=== PATIENT | female | born 1990 | race Caucasian/White ===

== ENCOUNTER 2024-07-04 16:00 | Inpatient (IN) | payer MEDICAID, SELFPAY ==
[2024-07-04] VITALS (8 sets, daily range): BP systolic 146–174; BP diastolic 87–99; PULSE 110–127; BMI 36.2
--- NOTE | 2024-07-04 16:44 | PD.LDANTE ---
Documentation for date of: 07/04/24 OB Labor/Induct. HPI History of Present Illness History of present illness: H and P dictated on STAT line in [facility] [id number] Meds Home Medications and Allergies Home Medications ?Medication ?Instructions ?Recorded ?Confirmed ?Type vits no.130-ferrous fum 1 tab PO QDAY 07/04/24 07/04/24 History 27 mg iron-folic acid 800 mcg tablet ( Vitamin) Allergies Allergy/AdvReac Type Severity Reaction Status Date / Time No Known Allergies Allergy Verified 07/04/24 16:11 OB Exam Physical Exam Vital signs: Pulse BP 118 H 163/97 H 07/04/24 16:29 07/04/24 16:29
[2024-07-04] MEDS: BETAMET ACET/BETAMET NA PH (Celestone) 6 MG/ML VIAL 12 MG IM (17:02)
[2024-07-04 17:03] LABS: Collection Type, Urine Clean Catch
[2024-07-04 17:05] LABS: Basophils # (Auto) 0.1 Thou/mm3 (0.0-0.2); Basophils % (Auto) 1 % (0-2.5); Eosinophils # (Auto) 0.1 Thou/mm3 (0.0-0.5); Eosinophils % (Auto) 1 % (0-10); Hematocrit 34.8 % (36.0-46.0); Hemoglobin 12.5 g/dL (12.0-16.0); Immature Granulocytes % (Auto) 1 % (0-0); Immature Granulocytes Auto 0.11 Thou/mm3 (0.00-0.00); Lymphocytes # (Auto) 2.1 Thou/mm3 (1.0-4.8); Lymphocytes % (Auto) 19 % (10-50); Mean Corpuscular HGB Conc 35.9 g/dl (31.0-37.0); Mean Corpuscular Hemoglobin 30.5 pg (25.0-35.0); Mean Corpuscular Volume 85 fL (80-100); Monocytes # (Auto) 0.6 Thou/mm3 (0.0-0.8); Monocytes % (Auto) 6 % (0-12); Neutrophils # (Auto) 7.8 Thou/mm3 (1.8-7.7); Neutrophils % (Auto) 73 % (37-80); Nucleated Red Blood Cell % 0 /100 WBC (0); Platelet Count 279 Thou/mm3 (140-440); RDW Standard Deviation 41.7 fL (36.4-46.3); White Blood Count 10.7 Thou/mm3 (3.6-11.0)
[2024-07-04 17:06] LABS: Bilirubin,Urine Negative (Negative); Blood,Urine Negative (Negative); Clarity,Urine Clear (Clear/Hazy); Color,Urine Colorless (Lt Yel-Yel); Glucose, Urine Negative (Negative); Ketones,Urine Negative (Negative); Leukocyte Esterase,Urine Negative (Negative); Nitrite,Urine Negative (Negative); PH,Urine 6.5 (5.0-7.0); Protein,Urine Negative (Neg - Trace); RBC,Urine 1 /hpf (0-3); Specific Gravity,Urine 1.004 (1.001-1.035); Squamous Epithelial Cell,Urine 4 /hpf (0-5); Urobilinogen,Urine Negative mg/dL (0.0-1.0); WBC,Urine < 1 /hpf (0-5)
[2024-07-04 17:26] LABS: Fibrinogen 574 mg/dL (175-375); INR 0.9 (0.9-1.3); Partial Thromboplastin Time 24.5 Seconds (22.0-36.0); Prothrombin Time 9.9 Seconds (9.0-12.2)
[2024-07-04 17:30] LABS: Alanine Aminotransferase 16 U/L (10-49); Albumin/Globulin Ratio 1.5 (1.2-2.2); Alkaline Phosphatase 91 U/L (46-116); Anion Gap 11 (7-16); Aspartate Amino Transferase 18 U/L (0-34); BUN/Creatinine Ratio 10 Ratio (12-20); Bilirubin,Total 0.3 mg/dL (0.3-1.2); Blood Urea Nitrogen 5 mg/dL (9-23); Calcium 9.5 mg/dL (8.3-10.6); Calcium (Corrected) 9.5 mg/dL (8.5-10.1); Chloride 104 mMol/L (98-107); Creatinine (Component) 0.5 mg/dL (0.6-1.3); Estimated Creatinine Clearance 184.6 mL/min (>60); Globulin 2.7 gm/dL (2.3-3.5); Glucose 98 mg/dL (74-106); Osmolality,Calculated 271 (275-295); Potassium 3.4 mMol/L (3.4-5.1); Sodium 137 mMol/L (136-145); Total Protein 6.7 gm/dL (5.7-8.2); Uric Acid 4.5 mg/dL (3.1-7.8); eGFR > 60 See Note
[2024-07-04 17:31] LABS: Creatinine,Random Urine 23 mg/dL (30-125); Protein Total, Random Urine < 6 mg/dL (1-14)
[2024-07-04 17:46] LABS: Syphilis Nonreactive (Nonreactive)
--- NOTE | 2024-07-05 09:57 | ESHP_ITS ---
RE: PRADEEP CORNEJO : 1990 DATE OF ADMISSION: 07/04/2024 HISTORY OF PRESENT ILLNESS: This is a 33-year-old 1, para 0 with a due date of 08/07/2023 with intrauterine at 35 weeks and 2 days who presented to the office for care and was found to have 2+ urine protein on dipstick with a blood pressure of 176/100 mmHg. The patient's blood pressures at home have been higher lately with today had a diastolic of 90. She denies any headache, change in vision or right upper quadrant pain. She reports normal movement. She denies any leaking or bleeding. She reports occasional contractions. She has had serial ultrasounds with maternal medicine showing macrosomia with the most recent ultrasound on 06/13/2023 showing growth at the 96th percentile with a weight of 5 pounds 7 ounces on that date. The patient has suffered from white coat hypertension throughout her ; however, underlying chronic hypertension is suspected. Her blood pressures in the office have been in the severe range, but home blood pressures have been in the 130s/80s and recently with a diastolic of 90 at home. The patient has been undergoing twice-weekly NSTs in the office with reassuring category 1 tracings. In addition to the anxiety the patient experiences in the clinical setting she also has elevated heart rate, which is normal at home, but in the office can be upwards of 100 to 120. ALLERGIES: NO KNOWN DRUG ALLERGIES. MEDICATIONS: 1. multivitamin 1 p.o. daily. 2. Aspirin 81 mg 1 p.o. daily. 3. Xolair 75 mg 1 subcutaneous injection biweekly as needed for chronic urticaria. PAST MEDICAL HISTORY: Anxiety disorder, white coat hypertension, menstrual migraine, chronic urticaria. SOCIAL HISTORY: She denies any alcohol drug use or smoking. 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 She is . FAMILY HISTORY: Denies. PAST SURGICAL HISTORY: Denies. REVIEW OF SYSTEMS: She denies any chest pain, palpitations, cough, fever, shortness of breath, or lower extremity pain. She denies any headache, change in vision or right upper quadrant pain. PHYSICAL EXAMINATION: Vital Signs: Blood pressure is 174/95 and 163/97. Heart rate was 127. Respirations 18. Temperature is 98.6. HEENT: Oropharynx and sclerae are clear. Lungs: Clear to auscultation bilaterally. Heart: Regular rate and rhythm. Abdomen: Gravid consistent with estimated weight of 6 pounds. Pelvic: Pelvic exam is deferred. Extremities: Nontender. Skin: No gross rashes or lesions. Neurologic: No focal deficits. ASSESSMENT AND PLAN: Intrauterine at 35 weeks and 2 days, proteinuria, white coat hypertension, rule out preeclampsia. I discussed with the patient the recommendations for maternal unit evaluation to rule out preeclampsia, the patient agrees. DT: 16:43:34 TT: 17:28:00 Ref: [id number] - TID: [id number] MTDD
== END 2024-07-04 18:35 | disposition home or self-care (01) | DRG 566 ==
PROVIDERS: Admitting Provider Specialist; PCP Family Medicine; Visit Provider Specialist
DX: O10.913 Unspecified pre-existing hypertension complicating pregnancy, third trimester (principal); O36.60X0 Maternal care for excessive fetal growth, unspecified trimester, not applicable or unspecified; O99.343 Other mental disorders complicating pregnancy, third trimester; O99.713 Diseases of the skin and subcutaneous tissue complicating pregnancy, third trimester; Z3A.35 35 weeks gestation of pregnancy; F41.9 Anxiety disorder, unspecified; L50.8 Other urticaria; Z79.82 Long term (current) use of aspirin
CPT/HCPCS: 36415; 80053; 81001; 82570; 84156; 84550; 85025; 85384; 85610; 85730; 86780; 86850; 86870; 86900; 86901; J0702

== ENCOUNTER 2024-07-05 17:09 | Observation (INO) | payer MEDICAID, SELFPAY ==
[2024-07-05 17:15] VITALS: PULSE 134; RESP 19; RESP 97; TEMP 37.1
[2024-07-05 17:25] VITALS: BP 135/93; PULSE 136
[2024-07-05 17:26] VITALS: BP 135/93; PULSE 130; RESP 17; TEMP 37.1; O2SAT 97; BMI 36.1
[2024-07-05] MEDS: BETAMET ACET/BETAMET NA PH (Celestone) 6 MG/ML VIAL 12 MG IM (17:49)
== END 2024-07-05 18:15 | disposition home or self-care (01) ==
PROVIDERS: Admitting Provider Specialist; PCP Family Medicine; Visit Provider Specialist
DX: Z34.03 Encounter for supervision of normal first pregnancy, third trimester (principal); Z3A.35 35 weeks gestation of pregnancy
CPT/HCPCS: 59025; 59899; 96372; J0702

== ENCOUNTER 2024-07-06 11:54 | Inpatient (IN) | payer MEDICAID, SELFPAY ==
[2024-07-06] VITALS (36 sets, daily range): BP systolic 128–190; BP diastolic 77–108; PULSE 63–133; RESP 10–99; TEMP 36.6–37; O2SAT 93–98; BMI 35.5; BMI 35.4
[2024-07-06 09:54] LABS: Basophils % (Auto) 0 % (0-2.5); Eosinophils % (Auto) 0 % (0-10); Hematocrit 35.1 % (36.0-46.0); Hemoglobin 12.3 g/dL (12.0-16.0); Immature Granulocytes % (Auto) 3 % (0-0); Immature Granulocytes Auto 0.37 Thou/mm3 (0.00-0.00); Lymphocytes # (Auto) 2.2 Thou/mm3 (1.0-4.8); Lymphocytes % (Auto) 15 % (10-50); Mean Corpuscular Hemoglobin 30.3 pg (25.0-35.0); Mean Corpuscular Volume 87 fL (80-100); Monocytes # (Auto) 0.9 Thou/mm3 (0.0-0.8); Monocytes % (Auto) 6 % (0-12); Neutrophils # (Auto) 10.7 Thou/mm3 (1.8-7.7); Neutrophils % (Auto) 76 % (37-80); Nucleated Red Blood Cell # 0.02 Thou/mm3 (0.00-0.00); Nucleated Red Blood Cell % 0 /100 WBC (0); Platelet Count 302 Thou/mm3 (140-440); RDW Standard Deviation 43.4 fL (36.4-46.3); Red Blood Count 4.06 Miln/mm3 (4.00-5.20); White Blood Count 14.2 Thou/mm3 (3.6-11.0)
[2024-07-06 10:14] LABS: Alanine Aminotransferase 16 U/L (10-49); Albumin, Serum 4.1 gm/dL (3.5-5.0); Albumin/Globulin Ratio 1.5 (1.2-2.2); Alkaline Phosphatase 89 U/L (46-116); Anion Gap 12 (7-16); Aspartate Amino Transferase 16 U/L (0-34); BUN/Creatinine Ratio 16 Ratio (12-20); Bilirubin,Total 0.4 mg/dL (0.3-1.2); Blood Urea Nitrogen 8 mg/dL (9-23); Calcium 9.6 mg/dL (8.3-10.6); Calcium (Corrected) 9.6 mg/dL (8.5-10.1); Carbon Dioxide 23.4 mMol/L (20.0-31.0); Chloride 103 mMol/L (98-107); Creatinine (Component) 0.5 mg/dL (0.6-1.3); Estimated Creatinine Clearance 182.6 mL/min (>60); Globulin 2.7 gm/dL (2.3-3.5); Glucose 106 mg/dL (74-106); LDH (Lactate Dehydrogenase) 163 U/L (120-246); Osmolality,Calculated 273 (275-295); Potassium 3.5 mMol/L (3.4-5.1); Sodium 138 mMol/L (136-145); Total Protein 6.8 gm/dL (5.7-8.2); Uric Acid 5.1 mg/dL (3.1-7.8); eGFR > 60 See Note
[2024-07-06 10:36] LABS: Protein Total, Urine Volume 3500 mL/24hr (600-1800)
[2024-07-06 11:03] LABS: Protein Total, 24 hr Urine 315 mg/24hr (<149); Protein Total, Urine 9 mg/dL (1-14)
[2024-07-06 11:13] LABS: Fibrinogen 490 mg/dL (175-375); INR 0.9 (0.9-1.3); Partial Thromboplastin Time 23.4 Seconds (22.0-36.0); Prothrombin Time 10.2 Seconds (9.0-12.2)
--- NOTE | 2024-07-06 11:52 | PD.LDHP ---
Documentation for date of: 07/06/24 OB Labor/Induct. HPI History of Present Illness History of present illness: H and P dictated on STAT line in [facility] [id number] History of Present Adequate Care: Yes Meds Home Medications and Allergies Home Medications ?Medication ?Instructions ?Recorded ?Confirmed ?Type vits no.130-ferrous fum 1 tab PO QDAY 07/04/24 07/05/24 History 27 mg iron-folic acid 800 mcg tablet ( Vitamin) aspirin 81 mg tablet,delayed 81 mg PO QDAY 07/05/24 07/05/24 History release (Adult Low Dose Aspirin) Allergies Allergy/AdvReac Type Severity Reaction Status Date / Time No Known Allergies Allergy Verified 07/05/24 17:38 OB Exam Physical Exam Vital signs: Temp Pulse BP 98.5 F 133 H 175/107 H 07/06/24 09:17 07/06/24 11:27 07/06/24 11:27 OB Results Labs 07/06/24 09:40 07/06/24 09:40 Labs: Short CBC 07/06/24 Range/Units 09:40 WBC 14.2 H (3.6-11.0) Thou/mm3 Hgb 12.3 (12.0-16.0) g/dL Hct 35.1 L (36.0-46.0) % Plt Count 302 (140-440) Thou/mm3 BMP 07/06/24 09:40 Sodium 138 Potassium 3.5 Chloride 103 Carbon Dioxide 23.4 BUN 8 L Creatinine 0.5 L Glucose 106 Calcium 9.6 Liver Function 07/06/24 Range/Units 09:40 Total Bilirubin 0.4 (0.3-1.2) mg/dL AST 16 (0-34) U/L ALT 16 (10-49) U/L Alkaline Phosphatase 89 (46-116) U/L Albumin 4.1 (3.5-5.0) gm/dL
[2024-07-06] MEDS: METOCLOPRAMIDE INJ 5 MG/ML VIAL 2 ML 10 MG IVP (12:50)
[2024-07-06] MEDS: ceFAZolin/D5W 2 GM IV 2 GM/100 ML BAG IV (12:53)
[2024-07-06] MEDS: FAMOTIDINE INJ 10 MG/ML VIAL 2 ML 20 MG IV (12:53)
[2024-07-06] MEDS: CITRIC ACID/SODIUM CITR 15 ML UDC (BICITRA) 30 ML PO (12:53)
--- NOTE | 2024-07-06 13:39 | ESHP_ITS ---
RE: PRADEEP CORNEJO : 1990 DATE OF ADMISSION: 07/06/2024 HISTORY OF PRESENT ILLNESS: This is a 33-year-old 1 para 0 with a due date of 08/06/2024 with intrauterine at 35 weeks and 4 days who presents to the maternal unit for follow up for recent development of proteinuria and increasing blood pressure. Her 24- hour urine came back showing 315 mg of protein over 24 hours. Her blood pressure is 170/102 and 175/107. She denies any headache, change in vision, or right upper quadrant pain. She denies any chest pain, palpitations, shortness of breath, or lower extremity pain. She reports normal movement. She reports occasional contractions. She denies any leaking or bleeding. She had a previous 24-hour urine baseline of 174 mg in the 2nd trimester. The most recent ultrasound on 06/13/2024 showed the growth at the 96th percentile with a weight of 5 pounds 7 ounces. ALLERGIES: NO KNOWN DRUG ALLERGIES. MEDICATIONS: 1. multivitamin 1 p.o. daily. 2. Aspirin 81 mg one p.o. daily. 3. Xolair 75 mg one subcutaneous injection biweekly as needed for chronic urticaria. PAST MEDICAL HISTORY: Chronic hypertension, anxiety disorder, menstrual migraine, chronic urticaria. SOCIAL HISTORY: She denies any alcohol, drug use, or smoking. 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 She is . FAMILY HISTORY: Denies. PAST SURGICAL HISTORY: Denies. REVIEW OF SYSTEMS: She denies any chest pain, palpitations, cough, fever, shortness of breath or lower extremity pain. She denies any headache, change in vision, or right upper quadrant pain. PHYSICAL EXAMINATION: VITAL SIGNS: Blood pressure is 175/107. Heart rate is 102. Respirations 18. Temperature is 98.7. HEENT: Oropharynx and sclerae are clear. Lungs: Clear to auscultation bilaterally. Heart: Regular rate and rhythm. Abdomen: Gravid, consistent with 6 pounds. Extremities: Nontender. Skin: No gross rashes or lesions. Neurologic: No focal deficits. ASSESSMENT: 1. Intrauterine at 35 weeks and 4 days. 2. Chronic hypertension with superimposed preeclampsia with severe features. 3. Unripe cervix. 4. Severe hypertension prevents induction of labor. PLAN: delivery, informed consent was obtained. The patient was made aware of the risks, complications, alternatives, benefits of the proposed procedure, and she agrees. She is aware of the risk of injury to bowel and bladder, adjacent organs, pulmonary embolism, deep vein thrombosis, blood clots in the deep veins of the legs, the lungs, anesthesia complications. DT: 11:52:10 TT: 13:37:00 Ref: [id number] - TID: [id number] MTDD
--- NOTE | 2024-07-06 14:16 | PD.LDDS ---
DS: Providers Provider Date of admission: 07/06/24 11:54 Primary care physician: Physician No Primary/Family Admitting Provider: Zeus Bee MD Attending Provider on Admission: Zeus Bee MD Attending Provider on DC: Zeus Bee MD Discharging Provider: Zeus Bee MD DS: Diagnosis Problem List Completed Was Problem List Reviewed/Reconciled?: Yes Summary/Hosp Course Brief History: H and P dictated on STAT line in [facility] [id number] Peripartum Data Procedures: Procedures Operation Date: 07/06/24 12:45 Actual Procedure Side Surgeon p in OB Zeus Bee MD Time Spent with Patient Time attestation: Total time spent providing and/or coordinating discharge services: Exam Vital Signs Temp Pulse Resp BP Pulse Ox 98.5 F 92 18 172/101 H 98 07/06/24 11:59 07/06/24 12:50 07/06/24 11:59 07/06/24 12:50 07/06/24 12:52 Discharge Plan Plan Patient Disposition: HOME (Self Care) Patient condition on transfer: Stable Prescriptions/Referrals Prescriptions/Med Rec: New hydrocodone-acetaminophen 5-325 mg tablet 1 tab PO Q6H MDD 4 PRN (Reason: pain) Qty: 20 0RF ibuprofen 600 mg tablet 600 mg PO Q6H PRN (Reason: fever or pain) Qty: 30 0RF Continued Vitamin 27 mg iron- 800 mcg tablet 1 tab PO QDAY Discontinued aspirin [Adult Low Dose Aspirin] 81 mg tablet,delayed release (DR/EC) 81 mg PO QDAY Referrals: No Primary/Family,Physician [Primary Care Provider] - Patient/Caregiver Discharge Instructions Discharge Activity: activity as tolerated Other Discharge Activity Instructions:: Follow up office 1 weeks. Education Materials: C Section Dc Print Language: Australian Stand Alone Forms: Yessica Award Info., Patient Portal Info Letter Discharge Order Discharge Orders: Discharge (Routine); Ordered 07/08/24 Ordered By: Zeus Bee Planned Discharge Date 07/08/24
[2024-07-06 15:00] LABS: Syphilis Nonreactive (Nonreactive)
[2024-07-06] MEDS: ACETAMINOPHEN 325 MG TABLET 650 MG PO ×2 (15:52→23:31)
[2024-07-06 16:13] LABS: Chlamydia trachomatis PCR Negative (Not Detect); Neisseria Gonorrhoeae DNA PCR Negative (Not Detect); Trichomonas Negative (Negative)
[2024-07-06] MEDS: LABETALOL 100 MG TABLET 200 MG PO (16:24)
[2024-07-06] MEDS: OXYTOCIN in NS 20 units 20 UNIT/1,000 ML BAG 125 UNIT IV (16:26)
[2024-07-06 21:20] LABS: Basophils % (Auto) 0 % (0-2.5); Eosinophils % (Auto) 0 % (0-10); Hematocrit 31.5 % (36.0-46.0); Hemoglobin 10.8 g/dL (12.0-16.0); Immature Granulocytes % (Auto) 1 % (0-0); Immature Granulocytes Auto 0.25 Thou/mm3 (0.00-0.00); Lymphocytes # (Auto) 1.5 Thou/mm3 (1.0-4.8); Lymphocytes % (Auto) 7 % (10-50); Mean Corpuscular HGB Conc 34.3 g/dl (31.0-37.0); Mean Corpuscular Hemoglobin 30.2 pg (25.0-35.0); Mean Corpuscular Volume 88 fL (80-100); Monocytes # (Auto) 1.6 Thou/mm3 (0.0-0.8); Monocytes % (Auto) 7 % (0-12); Neutrophils # (Auto) 19.7 Thou/mm3 (1.8-7.7); Neutrophils % (Auto) 85 % (37-80); Nucleated Red Blood Cell % 0 /100 WBC (0); Platelet Count 278 Thou/mm3 (140-440); RDW Standard Deviation 44.6 fL (36.4-46.3); Red Blood Count 3.58 Miln/mm3 (4.00-5.20); White Blood Count 23.1 Thou/mm3 (3.6-11.0)
[2024-07-07] VITALS (9 sets, daily range): BP systolic 112–152; BP diastolic 75–89; PULSE 87–108; RESP 15–18; TEMP 36.6–37.2; O2SAT 95–97
[2024-07-07] MEDS: RINGERS LACTATED 1000 ML 1,000 ML 100 ML IV (00:42)
[2024-07-07] MEDS: ACETAMINOPHEN 325 MG TABLET 650 MG PO ×3 (06:00→20:19)
--- NOTE | 2024-07-07 07:28 | PC.NURSE ---
updated on wbc 14.2 to 23.1, no new orders at this time.
[2024-07-07] MEDS: LABETALOL 100 MG TABLET 200 MG PO ×2 (08:39→20:21)
[2024-07-07] MEDS: Milk Of Magnesia Susp 30 ML UDC PO (11:34)
[2024-07-07] MEDS: SIMETHICONE 80 MG CHEW PO ×2 (11:34→16:26)
--- NOTE | 2024-07-07 13:44 | PC.SS ---
Update: SS conducted bedside contact with the patient to address nursing referral indicating patient possessed history of anxiety and depression.? SS introduced self and role.? Patient?s spouse, Sam Liao at bedside.? SS asked for permission to speak in front of him. Patient agreeable.? SS discussed with patient basis of referral.? Patient denies possessing current level of depression.? She did confirm she has a history of anxiety and not on any medication.? Patient states she?s seen a therapist in the past but the last few months has not.? Patient admitted the anxiety is mostly due to her graduate program. Mood disorder is not impairing patient?s daily level of functioning. ?Patient resides at home with spouse.? Patient is the patient?s first child.? [place] is baby girl Shivani. Baby was born at 35 weeks pre term via .? Baby is currently in [facility]. Dr. Bee provided care.? Patient was consistent with . Patient is not aligned with TANF, or SNAP. Patient is aligned with WIC. Patient denies history of drug/alcohol abuse, domestic violence or mental illness. Patient describes possessing positive support from family. Patient has all resources to include: car seat, clothing and supplies.? equipment services associate provided resources to include:? [employer], Warm Line and community numbers. No further intervention required at this time, social media developer will be available to address any further concerns. SS updated bedside nurse.
--- NOTE | 2024-07-07 14:56 | ESPR_ITS ---
RE: PRADEEP CORNEJO : 1990 DATE OF SERVICE: 07/07/2024 S: Postop day #1, the patient denies any problem or complaints. She is voiding, ambulating, tolerating regular diet, passing flatus. She denies any excessive vaginal bleeding. She denies any dizziness or lightheadedness. She denies any chest pain, palpitations, shortness of breath or lower extremity pain. O: Vital Signs: Blood pressure 127/80, heart rate 89, respirations 17, temperature 98.5, pulse oximetry 97% on room air. Lungs: Clear to auscultation bilaterally. Heart: Regular rate and rhythm. Abdomen: Fundus is firm. Incision is clear and intact. Dressing dry and intact. Extremities: Nontender. Laboratory Data: Hemoglobin pre-delivery is 12.3 and post delivery is 10.8. A: Postop day #1, status post delivery. P: Discontinue IV, remove dressing, encourage ambulation, support. DT: 13:06:01 TT: 14:55:00 Ref: [id number] - TID: [id number]
[2024-07-07] MEDS: IBUPROFEN TAB 400 MG TABLET 800 MG PO (16:01)
--- NOTE | 2024-07-07 20:48 | PC.NURSE ---
Dr. Dinh called @ 2041 and notified of elevated heart rate, elevated bp and temp of 99.0, also informed of trend of wbc's. no new changes at this time. will continue with plan of care.
[2024-07-08] MEDS: SIMETHICONE 80 MG CHEW PO (00:05)
--- NOTE | 2024-07-08 01:29 | PC.NURSE ---
has allergy to nsaid but requested ibuprofen and says only has reaction when exercising
[2024-07-08] MEDS: IBUPROFEN TAB 400 MG TABLET 800 MG PO (01:31)
[2024-07-08 01:55] VITALS: BP 131/81; PULSE 89; RESP 18; TEMP 36.9; O2SAT 97
[2024-07-08 01:59] VITALS: BP 131/81; PULSE 89; RESP 19; TEMP 36.9; O2SAT 97
[2024-07-08 02:13] VITALS: BP 133/80; PULSE 88; RESP 18; TEMP 37
[2024-07-08 04:03] VITALS: BP 129/82; PULSE 92; RESP 16; TEMP 36.8; O2SAT 96
--- NOTE | 2024-07-08 04:17 | PC.NURSE ---
called lab at 0052 on 07/08/2024 and spoke with soren stating that he spoke with Dr. Bee and rhogam was safe to administer.
[2024-07-08 05:37] LABS: Basophils # (Auto) 0.1 Thou/mm3 (0.0-0.2); Basophils % (Auto) 0 % (0-2.5); Eosinophils # (Auto) 0.1 Thou/mm3 (0.0-0.5); Eosinophils % (Auto) 1 % (0-10); Hematocrit 27.7 % (36.0-46.0); Hemoglobin 9.3 g/dL (12.0-16.0); Immature Granulocytes % (Auto) 1 % (0-0); Immature Granulocytes Auto 0.13 Thou/mm3 (0.00-0.00); Lymphocytes # (Auto) 2.9 Thou/mm3 (1.0-4.8); Lymphocytes % (Auto) 22 % (10-50); Mean Corpuscular HGB Conc 33.6 g/dl (31.0-37.0); Mean Corpuscular Hemoglobin 30.2 pg (25.0-35.0); Mean Corpuscular Volume 90 fL (80-100); Monocytes # (Auto) 1.1 Thou/mm3 (0.0-0.8); Monocytes % (Auto) 8 % (0-12); Neutrophils # (Auto) 9.3 Thou/mm3 (1.8-7.7); Neutrophils % (Auto) 68 % (37-80); Nucleated Red Blood Cell % 0 /100 WBC (0); Platelet Count 258 Thou/mm3 (140-440); RDW Standard Deviation 46.3 fL (36.4-46.3); Red Blood Count 3.08 Miln/mm3 (4.00-5.20); White Blood Count 13.7 Thou/mm3 (3.6-11.0)
--- NOTE | 2024-07-08 06:45 | PD.LDDELS ---
Data ([facility]) Data : 1 Para: 0 Term: 0 : 0 : 0 Delivery Data ([facility]) Labor Data ROM Date: 07/06/24 ROM Time: 13:33 Rupture Type: AROM Delivery Data EDC: 08/06/24 EDC calculated by:: LMP/early US confirmation Labor Onset Stage 1 Date: 07/06/24 Labor Onset Stage 1 Time: 13:33 Labor Onset Stage 2 Date: 07/06/24 Labor Onset Stage 2 Time: 13:33 Delivery Date: 07/06/24 Delivery Time: 13:33 Gestational age (weeks): 35 Gestational age (days): 4 Placenta Delivery Date: 07/06/24 Placenta Delivery Time: 13:35 Delivered by: Zeus Bee Delivery nurse: Marilee Puga Other staff at delivery: Baby Care/Terminal Manager Other staff at delivery: Nursery Nurse Other staff at delivery: MD Jarrell Omid Other staff at delivery: Jeanine Cronin Delivery Method Delivery: Delivery Type: Primary Presentation: Vertex Position: OA Anesthesia Type Primary Anesthesia: Spinal Delivery Room Medications Other Intrapartum Medications: Yes Placenta Placenta Delivery: Manual Cord Sample: Cord Blood Obtained Umbilical Cord Umbilical Vessels: 3 Nuchal Cord: None Body Cord: None Additional Procedures Mity Vac assisted delivery. Complications Complications: None Data ([facility]) Data Gender: Female Weight Grams: 2920 1 Minute Total: 7 5 Minute Total: 8
--- NOTE | 2024-07-08 08:17 | ESOP_ITS ---
RE: PRADEEP CORNEJO : 1990 DATE OF OPERATION: 07/06/2024 PREOPERATIVE DIAGNOSES: 1. Intrauterine at 35 weeks and 4 days. 2. Chronic hypertension with superimposed preeclampsia with severe features. 3. Hypertension, too high for induction of labor. POSTOPERATIVE DIAGNOSES: 1. Intrauterine at 35 weeks and 4 days. 2. Chronic hypertension with superimposed preeclampsia with severe features. 3. Hypertension, too high for induction of labor. PROCEDURE PERFORMED: Primary low transverse section via Pfannenstiel skin incision. SURGEON: Zeus Bee DO DRAFTER CASTINGS: KERMIT Ferrell ANESTHESIA: Spinal. ANESTHESIOLOGIST: Maricruz Mahoney CRNA ESTIMATED BLOOD LOSS: 800 mL COMPLICATIONS: None. COUNTS: Correct PATHOLOGY: Placenta. FINDINGS: Alive infant. Apgars see RN notes. Placenta removed completely intact. Uterus, ovaries and tubes grossly within normal limits. DESCRIPTION OF PROCEDURE: After proper informed consent was obtained, the patient was made aware of the risks, complications, alternatives, and benefits of the proposed procedure. She was taken to the operating room where she underwent induction of spinal anesthesia. She was placed in the dorsal lithotomy position. She was placed in the dorsal supine position. She was prepped and draped in the usual sterile fashion. A timeout was performed. A Pfannenstiel skin incision was made with scalpel carried through to the underlying layer of fascia with the Bovie. The fascia was nicked in the midline, incision extended bilaterally with the Bovie. The inferior aspect of the fascia incision was grasped with Susana clamped and elevated. The underlying rectus muscles dissected off with the Bovie. The rectus muscles were in the midline and the peritoneum identified between two Carr clamps and entered sharply with Metzenbaum scissors. The incision was extended superiorly and inferiorly. Good visualization of the bladder. Bladder blade was inserted. The vesicouterine peritoneum was incised transversely and the bladder flap created digitally. Bladder blades were reinserted. The lower uterine segment was incised in transverse fascia with scalpel. The incision was extended bilaterally digitally. The infants head delivered. The mouth and nose were suctioned with bulb suctioned. Shoulder body delivered atraumatically. The cord was clamped and cut. The infant sent off to the awaiting pediatric staff. Cord, blood, and gases were sent. The placenta was then removed manually. The uterus was exteriorized and cleared of all clots and debris and the uterus incision was repaired with #1-0 chromic catgut suture running in locking fashion. Second layer of same suture was used to imbricate the first layer. The vesicouterine peritoneum was closed with 2-0 chromic catgut suture in running fashion. The fundus was firm. The uterus was returned to the abdomen. The gutters were cleared of all clots and debris. The peritoneum was closed with 0 chromic catgut suture in running fashion. The muscle was closed with 0 chromic catgut suture in running fashion. The fascia was closed with #0 Vicryl beginning at each angle ending in center in running fashion. Subcutaneous tissue was irrigated with normal saline solution, found to be hemostatic, closed with 2-0 chromic catgut suture in a running fashion. The skin was closed with 4-0 Monocryl. A Dermabond Prineo dressing was applied. A sterile pressure dressing was applied. She tolerated the procedure well. Counts were correct. I discussed with the patient the nature of her condition, the intraoperative findings, and expectations for recovery. All questions were answered. DT: 14:12:44 TT: 16:46:00 Ref: [id number] - TID: [id number] TAYLOR
== END 2024-07-08 09:08 | disposition home or self-care (01) | DRG 540 ==
LOC: S4NX 13:53 → S4S1 13:56 → S4SX 13:57 → S4NX 13:57
PROVIDERS: Admitting Provider Specialist; Referring Provider Specialist; Visit Provider Specialist
PROC: 10D00Z1 Extraction of Products of Conception, Low, Open Approach (ICD-10-PCS; CPT 59514; principal; 2024-07-06 12:30)
DX: O14.14 Severe pre-eclampsia complicating childbirth (principal); Z3A.35 35 weeks gestation of pregnancy; Z37.0 Single live birth; O99.713 Diseases of the skin and subcutaneous tissue complicating pregnancy, third trimester; L50.8 Other urticaria
CPT/HCPCS: 36415; 59025; 80053; 83615; 84156; 84550; 85025; 85384; 85610; 85730; 86780; 86850; 86870; 86900; 86901; 87491; 87591; 87661; A4649; J0689; J1100; J2250; J2274; J2371; J2405; J2590; J2765; J2790; J3010; J3490; J7120; A9270; J1805; J2270

== ENCOUNTER 2024-07-20 12:55 | Outpatient (AMBR) | payer MEDICAID, SELFPAY ==
--- NOTE | 2024-07-20 16:17 | LACNOTE_ITS ---
Assessment LAC OP History History Hx of Breast Surgery: No Hx of Breast Feeding Problems: No LAC Breast Assessment Breast Assessment Bilateral: Breast Assessment Comment: mom has large breasts Alternative Milk Expression Alternative Milk Expression Alternative Method Used: Yes Method Used: Pumping Alternative Method Comment: mom pumping exclusively due to baby being in the NICU for 1 week. has been having a hard time trying to do just pumping as it is a lot of work Alternative Method Used Reason: Mother / Baby Separation Alternative Method Produced Milk / Colostrum: Yes Production Amount: 4 Production ounces or mls: ounces Pump Used: Electric LAC Assessment Breast Feeding Assessment Date of : 07/06/24 Current Age of baby: 2 (weeks) Weight: 3039.069 g Current weight of baby: 2766.913 g Breast Feeding Ability: Fair Complications: Difficult Latch [place] Complications Comment: baby has possible lip and tongue tie. explained difficulties that can occur with these issues on . mom confirmed that she is having all the typical issues that are indicative of ties. will give mom referrel to see oral surgen/dentist. Activity Level: Sleepy [place] Muscle Tone: With In Normal Limits [place] Suck Quality: Areolar Compression and Rhythmic Effective Suck: Yes [place] Swallow: Audible and Observed [place] Jaw: With In Norml Limits [place] Lip Seal: Poor and Tight Lips Feeding Posistion: Cross Cradle Additional Latch or Posistion Assistance Needed: Minimal Breast Feeding Comment: had mom use a nipple shield and showed her how to use a SNS so that feeds can be more efficient and shorter. At this time baby is at the breast for 45 min - 1 hour. then she feeds a bottle after the breastfed in order to make sure that baby is getting a full feed. as she tends to wake up right after breast fed because she is still hungry. explained system to her, she understood, will follow up next week for weigh in. Pre Weight (before feeding): 2757.842 g Post Weight (post feeding): 2775.985 g % gained or lost: 1% Gain LAC Intervention Interventions Tools: Nipple Shield and Aid Other Tools: Supplemental Nursing System SNS Techniques Discussed: Latch, Position and Pumping Intervention Comments: wanting to make sure baby stays awake long enough to get a good feed. baby tolerated breast only and fed for 19 minutes and had a 1 % post weight increase after feed. Discharge Follow Up Appointment Date and Time: 07-27-24 at 1300 LAC Latch Score LATCH Score Latch: Repeat Attempt to Hold Nipple Audible Swallow: Spontaneous, Intermittent, Frequent Nipple Type: Everted After Stimulation Comfort: Soft, Nontender Hold: Minimal Assistance Needed Total Score: 8 LAC Oral Assessment Oral Assessment Prenulum Level: Anterior Lip: Tight Upper Lip Palate: Normal / Intact Oral Assessment Comment: gave mom resource list for lip and tongue tie Dental Referral made: Yes OP DC Assessment Discharge Follow Up Appointment Date and Time: 07-27-24 at 1300 Visit Complete?: Yes
== END 2024-07-29 23:59 | disposition home or self-care (01) ==
LOC: HODLAC 12:55
DX: Z39.1 Encounter for care and examination of lactating mother (principal)

== ENCOUNTER 2024-08-03 11:10 | Outpatient (AMBR) | payer MEDICAID, SELFPAY ==
--- NOTE | 2024-08-03 11:48 | LACNOTE_ITS ---
Assessment Alternative Milk Expression Alternative Milk Expression Alternative Method Used: Yes Method Used: Pumping Alternative Method Comment: mom still having to pump at least 2-3 times in a 24 hour period. baby is doing better at the breast, but feeds still take a very long time as well as no completely emptying the breast of milk. Alternative Method Used Reason: Poor Feeding Alternative Method Produced Milk / Colostrum: Yes Production Amount: 3 Production ounces or mls: ounces Pump Used: Electric Pumping Frequency Per Day: 3 Pumping Frequency Comment: mom uses the haaka through out the day when she is nursing or at night to accumulate milk that drips. LAC Latch Score LATCH Score Latch: Repeat Attempt to Hold Nipple Audible Swallow: Spontaneous, Intermittent, Frequent Nipple Type: Everted After Stimulation Comfort: Soft, Nontender Hold: No Assistance Needed Total Score: 9 LAC Oral Assessment Oral Assessment Prenulum Level: Posterior Lip: Tight Upper Lip Palate: High Oral Assessment Comment: will follow up here after consult for lip and tongue tether is complete Dental Referral made: Yes Oral Assessment Comment: getting a referral to [facility] OP DC Assessment Discharge Visit Complete?: Yes
== END 2024-08-29 23:59 | disposition home or self-care (01) ==
LOC: HODLAC 11:10
DX: Z39.1 Encounter for care and examination of lactating mother (principal)

== ENCOUNTER 2024-09-06 09:12 | Outpatient (AMBR) | payer MEDICAID, SELFPAY | END 2024-09-28 23:59 | disposition home or self-care (01) | LOC: HODLAC 09:12 | DX: Z39.1 Encounter for care and examination of lactating mother (principal) ==

== ENCOUNTER 2024-09-20 09:33 | Outpatient (AMBR) | payer MEDICAID, SELFPAY ==
--- NOTE | 2024-09-20 14:34 | LACNOTE_ITS ---
Assessment LAC Assessment Breast Feeding Assessment Date of : 08/03/24 Current Age of baby: 10 (weeks) Weight: 3039.069 g Current weight of baby: 5533.827 g Breast Feeding Ability: Well [place] Muscle Tone: With In Normal Limits Suck Quality: Areolar Compression, Rhythmic and Tongue Cups Well Effective Suck: Yes [place] Swallow: Audible and Observed Jaw: With In Norml Limits [place] Lip Seal: Clicking and Tight Lips Feeding Posistion: Cradle Additional Latch or Posistion Assistance Needed: None Breast Feeding Comment: baby has lip tie consult at [facility] on October 03. Will follow up after the evaluation. Mom still worried about the gassness of baby and explosive poops and spitting up baby does due to lip tie. LAC Intervention Discharge Follow Up Appointment Date and Time: October 06, 2024 Feeding Preference at Discharge: Exclusive LAC Latch Score LATCH Score Latch: Repeat Attempt to Hold Nipple Audible Swallow: Spontaneous, Intermittent, Frequent Nipple Type: Everted After Stimulation Comfort: Soft, Nontender Hold: No Assistance Needed Total Score: 9 LAC [place] Oral Assessment Oral Assessment Lip: Tight Upper Lip Palate: High Dental Referral made: Yes Oral Assessment Comment: Dr. Caro did release tongue tie yesterday, lip tie to be assessed by [facility] on October 03 OP DC Assessment Discharge Follow Up Appointment Date and Time: October 06, 2024 Visit Complete?: Yes
== END 2024-09-28 23:59 | disposition home or self-care (01) ==
LOC: HODLAC 09:33
DX: Z39.1 Encounter for care and examination of lactating mother (principal)